=== PATIENT | female | born 1985 | race Hispanic/Latino ===

== ENCOUNTER 2017-05-16 21:06 | Emergency (ER) | payer OTHER ==
[2017-05-16] MEDS ORDERED: TDAP Vaccine 0.5 mL Syr IM ONE (22:28)
[2017-05-16 22:58] VITALS: RESP 16; TEMP 98.3
--- NOTE | 2017-05-16 23:41 | ED PDOC ---
Arrival/HPI - General Historian: Patient - History of Present Illness Time/Duration: Prior to Arrival Symptom Onset: Sudden Symptom Course: Unchanged Quality: Stabbing, Burning Severity Level: 5 - General Chief Complaint: Abnormal Skin Integrity Time Seen by Provider: 05/16/17 22:28 - History of Present Illness Narrative History of Present Illness (Text): 05/17/17 01:01 31-year-old female presents today with a laceration to the right third finger and right fifth finger status post injury. Patient states that she was washing dishes and the glass broke and she sustained laceration to the fingers. Patient unsure of her tetanus shot. Patient denies numbness weakness or tingling in the extremities. Denies decreased range of motion of the fingers. No medications taken for pain. Incident occurred prior to arrival. No fevers or chills. (Adrianna Abarca) Past Medical History - Provider Review Nursing Documentation Reviewed: Yes - Travel History Have you recently traveled outside [place] w/in the past 3 mons?: No - Infectious Disease Hx of Infectious Diseases: None - Tetanus Immunization Tetanus Immunization: Unknown - Reproductive Menopause: No - Psychiatric Hx Substance Use: No - Anesthesia Hx Anesthesia: No Family/Social History - Physician Review Nursing Documentation Reviewed: Yes Family/Social History: Unknown Family HX Smoking Status: Never Smoked Hx Alcohol Use: Yes Frequency of alcohol use: Socially Hx Substance Use: No Allergies/Home Meds Allergies/Adverse Reactions: Allergies No Known Allergies Allergy (Verified 05/16/17 21:49) Review of Systems - Review of Systems Constitutional: absent: Fatigue, Fevers Respiratory: absent: SOB, Cough Cardiovascular: absent: Chest Pain, Palpitations Gastrointestinal: absent: Abdominal Pain, Nausea, Vomiting Genitourinary Female: absent: Dysuria Musculoskeletal: Arthralgias. absent: Back Pain, Neck Pain Skin: Laceration Neurological: absent: Headache, Dizziness Psychiatric: absent: Anxiety, Depression Physical Exam Vital Signs Reviewed: Yes Temperature: Afebrile Blood Pressure: Normal Pulse: Regular Respiratory Rate: Normal Appearance: Positive for: Well-Appearing, Non-Toxic, Comfortable Pain Distress: None Mental Status: Positive for: Alert and Oriented X 3 - Systems Exam Head: Present: Atraumatic Respiratory/Chest: Present: Clear to Auscultation Cardiovascular: Present: Regular Rate and Rhythm Upper Extremity: Present: Normal ROM, NORMAL PULSES, Tenderness, Swelling, Neurovascularly Intact, Capillary Refill < 2s, Other (right hand; there is a v shaped laceration approx 1 cm to the volar aspect of the hand at the base of the 5th metacarpal region; no active bleeding. there is a 3cm V shaped laceration to the 3rd finger at the PIP; no active bleeding; full rom of finger ; sensation and distal pulses intact; cap refill <2. ). No: Erythema, Deformity Neurological: Present: GCS=15 Skin: Present: Warm, Dry Psychiatric: Present: Alert, Oriented x 3 Vital Signs Temp Pulse Resp BP Pulse Ox 05/16/17 21:48 98.3 F 90 16 113/72 95 Medical Decision Making ED Course and Treatment: 05/17/17 00:51 Patient is nontoxic well appearing in no distress. Vital signs are stable. Wound irrigated well with high pressure irrigation Tetanus updated tylenol po keflex po xray right hand; no fracture, no fb. wound explored and irrigated well; full rom of hand/finger. no visualized fb. Laceration repair: performed by surgical rn dr. allegra wheatley Bacitracin and dressing applied finger splint applied to 3rd finger. Patient was advised to keep the wound clean and dry, apply bacitracin twice daily. Advised to return immediately if signs of infection develop or return if any other concerning symptoms develop. pt was advised to f/u with hand specialist. discussed possibility of retained fb. will cover with abx and pt must f/u with specialist. Impression: Laceration , fingers Motrin every 6 hours as needed for pain keflex; 1 capsule 4 times daily x 7 days Keep the wound clean and dry, apply bacitracin twice daily Return in 7-10 days for suture removal Return immediately if signs of infection develop: High fevers, increasing pain, redness, swelling, purulent discharge use finger splint. Follow up with the hand specialist within the next 2 days. Followup with primary care physician within the next 2 days Return if any other concerning symptoms develop (Adrianna Abarca) - RAD Interpretation Radiology Orders: 05/16/17 22:29 HAND RIGHT 3 VIEWS [RAD] Stat - Medication Orders Current Medication Orders: Discontinued Medications Acetaminophen (Tylenol 325mg Tab) 975 mg PO STAT STA Stop: 05/16/17 22:29 Last Admin: 05/16/17 23:10 Dose: 975 mg Re-Assess: MAR Pain/Vitals Document 05/17/17 00:09 SUE (Rec: 05/17/17 00:09 [facility] [id number] Pain Reassessment Is This A Pain ReAssessment? Yes Sleep Is patient sleeping during reassessment? No Presence of Pain Presence of Pain Yes Cephalexin Monohydrate (Keflex) 500 mg PO STAT STA PRN Reason: Protocol Stop: 05/17/17 00:50 Last Admin: 05/17/17 00:56 Dose: 500 mg Lidocaine HCl (Lidocaine 1% (20ml)) Confirm Administered Dose 20 ml .ROUTE .STK- MED ONE Stop: 05/16/17 23:53 Tetanus/Reduced Diphtheria/Acell Pertussis (Boostrix Vaccine Inj) 0.5 ml IM .ONCE ONE Stop: 05/16/17 22:29 Last Admin: 05/16/17 23:10 Dose: 0.5 ml - Procedure PROCEDURE NOTE (Text): PROCEDURE: LACERATION REPAIR Performed by the emergency provider Location: 3rd and 5th digit on Right hand Length: 3 cm and 0.5 cm Description: clean wound edges, no foreign bodies Distal CMS: Normal. No deficits. Neurovascularly intact. Anesthesia: Lidocaine 1% Preparation: The wound was cleaned with NS and Bet[place]. The area was prepped and draped in the usual sterile fashion. Exploration: The wound was explored and no foreign bodies were found. Procedure: The wound was closed with 4-0 nylon. There was appropriate approximation. In total, 6 (2 in 5th digit and 4 in 3rd digit) were used. Post-Procedure: Good closure and hemostasis. The patient tolerated the procedure well and there were no complications. Neurovascularly intact. Post procedure dressing applied. (Allegra Wheatley) Disposition/Present on Arrival - Present on Arrival Any Indicators Present on Arrival: No History of DVT/PE: No History of Uncontrolled Diabetes: No Urinary Catheter: No History of Decub. Ulcer: No History Surgical Site Infection Following: None - Disposition Have Diagnosis and Disposition been Completed?: Yes Disposition Time: 00:50 Patient Plan: Discharge - Disposition Diagnosis: Laceration of fingers without complication Disposition: HOME/ ROUTINE Patient Problems: Current Active Problems Problem Status Onset Laceration of fingers without complication Acute Condition: GOOD Discharge Instructions (ExitCare): Care For Your Stitches (ED), Laceration (ED) Additional Instructions: Juan M every 6 hours as needed for pain keflex; 1 capsule 4 times daily x 7 days Keep the wound clean and dry, apply bacitracin twice daily Return in 7-10 days for suture removal Return immediately if signs of infection develop: High fevers, increasing pain, redness, swelling, purulent discharge use finger splint. Follow up with the hand specialist within the next 2 days. Followup with primary care physician within the next 2 days Return if any other concerning symptoms develop Prescriptions: Cephalexin [Keflex] 500 mg PO QID #28 capsule Ibuprofen [Motrin] 600 mg PO Q6H PRN #20 tab PRN Reason: pain/fever reduction Referrals: Cathleen Marcelino MD [Primary Care Provider] - Follow up with primary Austin Monroy MD [Staff Provider] - Follow up with primary Claire Sparks MD [Non-Staff] - Follow up with primary Forms: [employer] [facility] ([place]ami)
[2017-05-16] MEDS ORDERED: Lidocaine 1% Inj (20ml) ONE (23:52)
[2017-05-17 01:13] VITALS: BP 116/73; PULSE 86; O2SAT 98
--- NOTE | 2017-05-17 10:06 | RAD ---
PROCEDURE: Right Hand Radiographs. HISTORY: laceration 3rd finger at PIP and 5th finger COMPARISON: None available. FINDINGS: BONES: The distal digits are not adequately visualized due to patient positioning, incomplete extension ; visualized osseous structures appear intact without acute displaced fracture. JOINTS: No dislocation. SOFT TISSUES: Soft tissue swelling. No evidence of radiopaque foreign body. OTHER FINDINGS: None. IMPRESSION: The distal digits are not adequately visualized due to patient positioning, incomplete extension ; visualized osseous structures appear intact without acute displaced fracture. Soft tissue swelling.
== END 2017-05-17 01:17 | disposition home or self-care (01) ==
LOC: MERGE 21:06 → ED 21:06
DX: S61.212A Laceration without foreign body of right middle finger without damage to nail, initial encounter (principal); S61.216A Laceration without foreign body of right little finger without damage to nail, initial encounter; W25.XXXA Contact with sharp glass, initial encounter; Y93.G1 Activity, food preparation and clean up; Y92.89 Other specified places as the place of occurrence of the external cause; Z23 Encounter for immunization